=== PATIENT | female | born 1930 | race African-American/Black ===

== ENCOUNTER 2018-05-31 13:05 | Emergency (ER) | payer MEDICARE, OTHER ==
[~2018-05-31] VITALS: Ht 152.4 cm; Wt 67.0 kg
[~2018-05-31 13:05] MED LIST: ACC40; CLON0.3T4; CLOP75TA16; FURO-151; GLYB5TAB4; SIMV40TA2
[2018-05-31] MEDS ORDERED: CLONIDINE 0.2MG TABLET PO ONE (14:30)
[2018-05-31] MEDS ORDERED: ASPIRIN 81MG TABLET PO ONE (14:30)
[2018-05-31 15:47] LABS: BASOPHILS % 0.7 % (0.0-2.0); EOSINOPHILS % 1.5 % (0.0-5.0); HEMATOCRIT. 36.4 % (36.0-48.0); HEMOGLOBIN. 12.2 g/dL (12.0-16.0); LYMPHOCYTES % 24.7 % (20.0-50.0); MEAN CORPUSCULAR HEMOGLOBIN 33.1 pg (28.0-32.0); MEAN CORPUSCULAR VOLUME 98.9 fL (81.0-99.0); MEAN PLATELET VOLUME 8.5 fl (7.4-10.4); MONOCYTES % 10.7 % (2.0-8.0); NEUTROPHILS % 62.4 % (40.0-76.0); PLATELET 306 x1000/uL (130-400); RED BLOOD CELL COUNT 3.68 mill/uL (4.2-5.4); RED CELL DISTRIBUTION WIDTH 12.5 % (11.6-14.6)
[2018-05-31 15:50] LABS: CHLORIDE 104 mEq/L (98-107)
[2018-05-31 15:52] LABS: PARTIAL THROMBOPLASTIN TIME 25.2 sec (23.4-31.0); PROTHROMBIN TIME 9.6 sec (9.1-11.1)
[2018-05-31 17:34] VITALS: BP 148/59
== END 2018-05-31 18:03 | disposition short-term general hospital (02) ==
LOC: ER 13:05 → CANBEDREQ 16:15 → ER 18:03
DX: I10 Essential (primary) hypertension (principal); R07.9 Chest pain, unspecified; E11.9 Type 2 diabetes mellitus without complications; Z90.49 Acquired absence of other specified parts of digestive tract; Z87.891 Personal history of nicotine dependence; Z79.899 Other long term (current) drug therapy
CPT/HCPCS: 36415; 71045; 83880; 84484; 93005; 99284; 99285

== ENCOUNTER 2018-08-24 12:21 | Emergency (ER) | payer MEDICARE, OTHER ==
[~2018-08-24] VITALS: Ht 157.5 cm; Wt 66.0 kg
[2018-08-24] MEDS ORDERED: ACETAMINOPHEN WITH CODEINE 300/30MG TABLET PO STA (13:16)
[2018-08-24 13:34] LABS: CHLORIDE 114 mEq/L (98-107)
[2018-08-24 14:40] VITALS: BP 174/80
== END 2018-08-24 15:00 | disposition home or self-care (01) ==
LOC: ER 12:21
DX: S09.90XA Unspecified injury of head, initial encounter (principal); I10 Essential (primary) hypertension; M19.90 Unspecified osteoarthritis, unspecified site; E11.9 Type 2 diabetes mellitus without complications; Z90.49 Acquired absence of other specified parts of digestive tract; W01.0XXA Fall on same level from slipping, tripping and stumbling without subsequent striking against object, initial encounter; Y93.89 Activity, other specified; Y92.018 Other place in single-family (private) house as the place of occurrence of the external cause
CPT/HCPCS: 36415; 73030; 80048; 99284

== ENCOUNTER 2019-11-13 18:01 | Emergency (ER) | payer MEDICARE, MEDICAID, OTHER ==
[~2019-11-13] VITALS: Ht 152.4 cm; Wt 62.0 kg
[~2019-11-13 18:01] MED LIST changes: -CLOP75TA16; +CLOP75TA4
[2019-11-13] MEDS ORDERED: AMLODIPINE 10MG TABLET PO ONE (18:30)
[2019-11-13 18:45] LABS: EOSINOPHILS % 1.6 % (0.0-5.0); HEMATOCRIT. 37.4 % (36.0-48.0); HEMOGLOBIN. 13.4 g/dL (12.0-16.0); LYMPHOCYTES % 30.8 % (20.0-50.0); MEAN CORPUSCULAR VOLUME 97.8 fL (81.0-99.0); MEAN PLATELET VOLUME 8.6 fl (7.4-10.4); MONOCYTES % 7.6 % (2.0-8.0); PLATELET 270 x1000/uL (130-400); RED BLOOD CELL COUNT 3.83 mill/uL (4.2-5.4); RED CELL DISTRIBUTION WIDTH 12.8 % (11.6-14.6)
[2019-11-13 18:47] LABS: CHLORIDE 109 mEq/L (98-107)
[2019-11-13] MEDS ORDERED: HYDRALAZINE HCL 100MG TABLET PO ONE (19:45)
[2019-11-13] MEDS ORDERED: LABETALOL HCL 20MG/4ML CARPUJECT IV ONE (21:30)
[2019-11-13] MEDS ORDERED: LABETALOL 5MG/ML SYR 20 MG/4 ML SYRINGE IV NR (21:45)
[2019-11-13 22:36] VITALS: BP 173/55
== END 2019-11-13 22:53 | disposition home or self-care (01) ==
LOC: ER 18:01
DX: I10 Essential (primary) hypertension (principal); E11.9 Type 2 diabetes mellitus without complications; Z91.14 Patient's other noncompliance with medication regimen; Z90.49 Acquired absence of other specified parts of digestive tract
CPT/HCPCS: 36415; 80053; 85025; 93005; 96374; 99285; J3490